=== PATIENT | male | born 1980 | race Caucasian/White ===

== ENCOUNTER 2021-08-08 15:46 | Emergency (ER) | payer OTHER ==
[2021-08-08 17:21] VITALS: BP 133/91
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
--- NOTE | 2021-08-09 09:06 | Electrocardiograph Report ---
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
== END 2021-08-08 17:47 | disposition home or self-care (01) ==
LOC: ED 15:46
DX: Z04.1 Encounter for examination and observation following transport accident (principal); Z79.899 Other long term (current) drug therapy; V87.7XXA Person injured in collision between other specified motor vehicles (traffic), initial encounter; Y93.89 Activity, other specified; Y92.488 Other paved roadways as the place of occurrence of the external cause; Y99.8 Other external cause status
CPT/HCPCS: 93005; 99282